=== PATIENT | female | born 1990 | race Caucasian/White ===

== ENCOUNTER 2017-04-28 05:31 | Emergency (ER) | payer OTHER ==
[2017-04-28 05:51] VITALS: BP 101/67
[2017-04-28] MEDS ORDERED: cefTRIAXone 1 GM VIAL IM STA (06:05)
[2017-04-28] MEDS ORDERED: AZITHROMYCIN 250 MG TABLET PO STA (06:06)
[2017-04-28 06:07] LABS: BILIRUBIN,URINE NEGATIVE (NEGATIVE)
[2017-04-28 06:08] LABS: UA CHARGE (STRIP ONLY) YES; UR CULTURE IF IND NOT INDICATED
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
[2017-04-28] MEDS ORDERED: cefTRIAXone 250 MG VIAL ONE (06:33)
[2017-04-28] MEDS ORDERED: LIDOCAINE 1% 2 ML VIAL ONE (06:33)
[2017-04-28] MEDS ORDERED: AZITHROMYCIN 250 MG TABLET PO ONE (06:33)
== END 2017-04-28 08:22 | disposition home or self-care (01) ==
LOC: EDUNIT# → ED 05:31
DX: T76.21XA Adult sexual abuse, suspected, initial encounter (principal)
CPT/HCPCS: 36415; 81003; 84702; 99283; A9270; 81001; 87086

== ENCOUNTER 2017-05-15 02:35 | Emergency (ER) | payer OTHER ==
[2017-05-15] MEDS ORDERED: TETANUS/DIPHTHERIA/PERTUSSIS 0.5 ML SYRINGE IM ONE ×2 (02:44→02:56)
[2017-05-15] MEDS ORDERED: LIDOCAINE 2%-EPI 1:100000 20 ML MDV ONE (02:47)
[2017-05-15 03:20] LABS: BASOPHILS % (AUTO) 0.4 %; EOSINOPHILS # (AUTO) 0.4 10^3/uL (0.0-0.7); EOSINOPHILS % (AUTO) 3.9 %; HCT - HEMATOCRIT 38.6 % (37.0-47.0); HGB - HEMOGLOBIN 13.1 g/dL (12.0-16.0); LYMPHOCYTES # (AUTO) 4.3 10^3/uL (1.5-3.5); LYMPHOCYTES % (AUTO) 45.3 %; MEAN CORPUSCULAR HEMOGLOBIN 31.6 pg (27.0-31.0); MEAN CORPUSCULAR HGB CONC 33.9 g/dL (32.0-36.0); MEAN CORPUSCULAR VOLUME 93.4 fL (81.0-99.0); MEAN PLATELET VOLUME 8.3 fL (7.9-10.8); MONOCYTES # (AUTO) 0.4 10^3/uL (0.0-1.0); NEUTROPHILS # (AUTO) 4.4 10^3/uL (1.5-6.6); NEUTROPHILS % (AUTO) 46.4 %; NUCLEATED RED BLOOD CELLS AUTO 0.1 /100WBC; RED BLOOD COUNT 4.14 10^6/uL (4.20-5.40); RED CELL DISTRIBUTION WIDTH 13.2 % (12.0-15.0); UNCORRECTED WHITE BLOOD COUNT 9.5 x10^3/uL; WHITE BLOOD COUNT 9.5 x10^3/uL (4.8-10.8)
[2017-05-15 03:28] LABS: ALBUMIN/GLOBULIN RATIO 1.4 (1.0-2.2); BILIRUBIN,TOTAL 0.4 mg/dL (0.2-1.0); BUN - BLOOD UREA NITROGEN 9 mg/dL (6-20); CALCIUM 9.1 mg/dL (8.5-10.3); CARBON DIOXIDE - CO2 23 mmol/L (21-32); CHLORIDE 110 mmol/L (101-111); CREATININE 0.7 mg/dL (0.4-1.0); GFR - MDRD 102 (>89); GLUCOSE 125 mg/dL (70-100); LIPASE 26 U/L (22-51); POTASSIUM 3.8 mmol/L (3.5-5.0); SALICYLATE < 6.0 mg/dL; SODIUM 142 mmol/L (135-145); TOTAL PROTEIN 7.3 g/dL (6.7-8.2)
[2017-05-15 03:36] LABS: ACETAMINOPHEN < 10 ug/mL (10-30)
[2017-05-15 03:55] LABS: BILIRUBIN,URINE NEGATIVE (NEGATIVE)
--- NOTE | 2017-05-15 04:04 | ED Physician Documentation ---
PD HPI MHE - Stated complaint Stated Complaint: RT WRIST LACERATION - Chief complaint Chief Complaint: General - History obtained from History obtained from: Patient, Family - History of Present Illness Primary symptom: Suicidal ideation, Self harm - cut Timing - onset: How many minutes ago (30) Contributing factors: Sig other, Substance abuse - ETOH Similar symptoms before: Work up / diagnostics, Treatment Recently seen: Emergency Dept - Additional information Additional information: Patient is a 27 year old female with a history Review of Systems Constitutional: denies: Fever, Chills Eyes: denies: Decreased vision, Photophobia Ears: denies: Ear pain, Drainage/discharge Nose: denies: Congestion Cardiac: denies: Chest pain / pressure, Palpitations Respiratory: denies: Cough GI: denies: Nausea, Vomiting : denies: Discharge, Vaginal bleeding Skin: reports: Lesions, Laceration (s) Musculoskeletal: reports: Extremity pain. denies: Joint pain Neurologic: denies: Generalized weakness, Focal weakness Psychiatric: reports: Depressed, Suicidal Immunocompromised: denies: Immunocompromised PD PAST MEDICAL HISTORY - Past Medical History Psych: Anxiety - Past Surgical History Past Surgical History: Yes HEENT: Tonsil/Adenoidectomy - Present Medications Home Medications: Ambulatory Orders Medication Instructions Recorded Confirmed Sertraline [Zoloft] 50 mg PO DAILY 04/28/17 05/15/17 - Allergies Allergies/Adverse Reactions: Allergies Allergy/AdvReac Type Severity Reaction Status Date / Time No Known Drug Allergies Allergy Verified 03/12/15 12:39 - Social History Does the pt smoke?: No Smoking Status: Never smoker Does the pt drink ETOH?: Yes Does the pt have substance abuse?: No - Immunizations Immunizations are current?: Yes - POLST Patient has POLST: No PD ED PE NORMAL - Vitals Vital signs reviewed: Yes - General General: Well developed/nourished - HEENT HEENT: Atraumatic, PERRL, Moist mucous membranes - Neck Neck: Supple, no meningeal sign - Cardiac Cardiac: RRR, No murmur - Respiratory Respiratory: No respiratory distress - Abdomen Abdomen: Soft - Neuro Neuro: Alert and oriented X 3, No motor deficit, No sensory deficit, Normal speech PD ED PE EXPANDED - Extremities Extremities: Laceration, Right wrist (3 cm laceration of right wrist) - Psych Psych: Intoxicated / AOB, Depressed, Suicidal Results - Vitals Vitals: Vital Signs - 24 hr 05/15/17 02:40 Heart Rate 78 Respiratory 14 Rate Blood Pressure 110/70 O2 Saturation 97 Oxygen O2 Source Room air - Labs Labs: Laboratory Tests 05/15/17 05/15/17 03:06 03:06 WBC 9.5 RBC 4.14 L Hgb 13.1 Hct 38.6 MCV 93.4 MCH 31.6 H MCHC 33.9 RDW 13.2 Plt Count 224 MPV 8.3 Neut # 4.4 Lymph # 4.3 H [place] # 0.4 Eos # 0.4 Baso # 0.0 Absolute Nucleated RBC 0.01 Nucleated RBCs 0.1 Sodium 142 Potassium 3.8 Chloride 110 Carbon Dioxide 23 Anion Gap 9.0 BUN 9 Creatinine 0.7 Estimated GFR (MDRD) 102 Glucose 125 H Calcium 9.1 Total Bilirubin 0.4 AST 17 ALT 10 Alkaline Phosphatase 46 Total Protein 7.3 Albumin 4.3 Globulin 3.0 Albumin/Globulin Ratio 1.4 Lipase 26 Salicylates < 6.0 Acetaminophen < 10 L Ethyl Alcohol 249.6 Procedures - Laceration (location) right wrist Length in cm: 3 Wound type: Linear Neurovascular status: Sensory intact, Vascular intact Tendon involvement: Tendon intact Anesthesia: Lidocaine 2% with epi Wound Preparation: Chlorhexadine Skin layer closure: Nylon, Size #-0 - enter number (5), Sutures - enter # (8) Other: Patient tolerated well, No complications, Neurovascular intact, Dressing applied, Tetanus booster given Complexity: Simple PD MEDICAL DECISION MAKING - ED course Complexity details: reviewed old records, reviewed results, re-evaluated patient , considered differential, d/w patient, d/w family ED course: Patient was seen and examined at bedside. labs were drawn and urine was collected. patient's wound was repaired. Patient was suicidal but was also intoxicated. patient stated that she wanted to talk to someone so patient was signed over to dr. Morel pending social work evaluation. Departure - Departure Clinical Impression: Laceration of arm Instructions: ED Laceration Sure Close Follow-Up: Primary,care provider [Other] - Within 1 week (please follow up with your doctor in 7-10 days for suture removal)
[2017-05-15 04:10] LABS: UA w/ MICROSCOPIC CHARGE YES; UR CULTURE IF IND NOT INDICATED; WBC,URINE 0-3 /HPF (0-5)
[2017-05-15 04:11] LABS: HCG UR QUAL NEGATIVE
[2017-05-15 16:22] VITALS: BP 98/69
== END 2017-05-15 16:35 | disposition home or self-care (01) ==
LOC: ED 02:35
DX: S61.511A Laceration without foreign body of right wrist, initial encounter (principal); X78.8XXA Intentional self-harm by other sharp object, initial encounter; Y92.89 Other specified places as the place of occurrence of the external cause; Z23 Encounter for immunization
CPT/HCPCS: 12002; 36415; 80053; 80306; 80307; 80320; 80329; 81001; 81003; 81025; 83690; 84443; 85025; 87086; 90471; 99283; 99285